=== PATIENT | male | born 1955 | race Two or more races ===

== ENCOUNTER 2020-11-02 23:03 | Inpatient (IN) | payer MEDICARE, OTHER ==
[~2020-11-02] VITALS: Ht 180.3 cm; Wt 83.0 kg
[2020-11-02] MEDS ORDERED: METOPROLOL TARTRATE 50 MG TABLET PO ONE (23:15)
[2020-11-02] MEDS ORDERED: LORAZEPAM 0.5 MG TABLET PO ONE (23:15)
[2020-11-02] MEDS ORDERED: ASPIRIN 81 MG TAB.CHEW PO ONE (23:15)
--- NOTE | 2020-11-02 23:16 | NUR ---
PT BIB RA 88 FROM HOME C/O CONSTANT PINPOINT NONRADIATING LEFT CHEST PRESSURE STARTED AT 9 THIS MORNING. A/O X4, NO SOB OR LABORED BREATHING, AFEBRILE. DENIES ANY N/V. CLEAR SPEECH, COMPLETE SENTENCES, HAND GRIBS EQUAL. NO DEFICITS TO EXTREMITIES NOTED. EYES PERRLA. DR. FUNK AT BEDSIDE, MSE IN PROGRESS.
--- NOTE | 2020-11-02 23:20 | NUR ---
PHLEB AT BEDSIDE.
--- NOTE | 2020-11-02 23:25 | NUR ---
XRAY AT BEDSIDE.
[2020-11-02] MEDS ORDERED: LORAZEPAM 1 MG TABLET ONE (23:27)
[2020-11-02] MEDS ORDERED: METOPROLOL TARTRATE 50 MG TABLET ONE (23:27)
[2020-11-02] MEDS ORDERED: ASPIRIN 81 MG TAB.CHEW ONE (23:27)
[2020-11-02 23:32] LABS: HEMATOCRIT 46.6 % (36.7-47.1); MEAN CORPUSCULAR HEMOGLOBIN 30.5 uug (23.8-33.4); MEAN CORPUSCULAR VOLUME 86.7 fL (73.0-96.2); PLATELET COUNT (AUTO) 223 K/uL (152-348)
[2020-11-02 23:36] LABS: POTASSIUM 3.9 mmol/L (3.5-5.1)
[2020-11-02] MEDS ORDERED: OXYC-128 PO (23:38)
[2020-11-02] MEDS ORDERED: OXYCODONE/APAP 5-325 MG TABLET PO ONE (23:45)
[2020-11-02] MEDS ORDERED: OXYCODONE/APAP 5-325 MG TABLET ONE (23:49)
--- NOTE | 2020-11-02 23:56 | NUR ---
CALLED [facility] FOR PANEL CALL, KIRAN HYMAN PAGED.
[2020-11-03] VITALS (16 sets, daily range): BP systolic 115–148; BP diastolic 62–104
[2020-11-03] MEDS ORDERED: OMEP20TA20 PO (00:04)
[2020-11-03] MEDS ORDERED: celebrex PO (00:04)
[2020-11-03] MEDS ORDERED: ENOXAPARIN SODIUM 80 MG/0.8 ML DISP.SYRIN SQ ONE ×2 (00:15→00:21)
[2020-11-03] MEDS ORDERED: ACETAMINOPHEN 325 MG TABLET PO PRN ×2 (00:15→17:09)
[2020-11-03] MEDS ORDERED: hydrALAZINE HCL 20 MG/1 ML VIAL IV PRN (00:15)
[2020-11-03] MEDS ORDERED: MORPHINE SULFATE 2 MG/1 ML DISP.SYRIN IV PRN (00:15)
[2020-11-03] MEDS ORDERED: LABETALOL HCL 100 MG/20 ML VIAL IV PRN (00:15)
[2020-11-03] MEDS ORDERED: HYDROCODONE/APAP 5-325MG TABLET PO PRN (00:15)
[2020-11-03] MEDS ORDERED: ONDANSETRON 4 MG/2 ML VIAL IV PRN (00:15)
--- NOTE | 2020-11-03 00:17 | NUR ---
DR. ALVAREZ (CARDIO) CALLED AND PAGED. WAITING SUPERINTENDENT MENAGERIE BACK.
--- NOTE | 2020-11-03 01:07 | NUR ---
REPAGED DR. ALVAREZ.
--- NOTE | 2020-11-03 02:23 | NUR ---
PT NOTED TO BE IN BED RESTING, WATCHING TV. VSS.
--- NOTE | 2020-11-03 03:40 | NUR ---
GAVE REPORT TO FREDDY TAVAREZ.
--- NOTE | 2020-11-03 04:33 | NUR ---
Pt. admitted to CCU , under care of Dr. Denise Dx: Myocarditis Belongs List completed
--- NOTE | 2020-11-03 04:35 | NUR ---
RECEIVED PATIENT VIA WHEELCHAIR FROM ER CAME FOR CHEST PAIN DX: NSTEMI -MYOCARDITIS -COSTOCHONDRITIS ACUTE. PATIENT AAOX4 ,MAEX4. CONNECTED TO HEART MONITOR AND ORIENTED TO ROOM CALL LIGHT AND TV MONITOR . V/S BP 117/71 HR 50 SINUS BRADYCARDIA CONSISTENT WITH EKG DONE IN ER ,RR 22 SATURATION ROOM AIR 95%. PATIENT DENIES CHEST PAIN ,HE SAID JUST GIVE ME THE REMOTE CONTROL FOR THE TV AND WATER AND URINAL BESIDE ME . ADMITTED PATIENT AND DATA COLLECTED FROM PATIENT . BELONGINGS CHECK DONE AND PATIENT BELONGINGS PLACED IN A BELONGING BAG AND PATIENT WANT IT IN HIS POSSESSION .
--- NOTE | 2020-11-03 04:50 | NUR ---
PATIENT ASKED FOR SOMETHING EAT , HE SAID HE LIKE JELLO GIVEN STRAWBERRY FLAVORED JELLO .PATIENT ABLE TO FEED SELF .
--- NOTE | 2020-11-03 05:00 | NUR ---
LAB CAME AND DRAW AM LAB ,TROPONIN.
--- NOTE | 2020-11-03 05:45 | NUR ---
CALLED ABNORMAL TROPONIN TO [employer] PRODUCER ASSISTANT : SPOKED WITH :JOVANI INFORMED HIM THAT THE TROPONIN AT [phone] (H)-NO ORDERS MADE . INFORMED HIM NO LABS ORDERED FOR THIS MORNING HE SAID TO ORDER CMP AND CBC .
[2020-11-03 06:21] LABS: BILIRUBIN,TOTAL 0.8 mg/dL (0.2-1.0); CREATININE 1.1 mg/dL (0.6-1.3); POTASSIUM 3.8 mmol/L (3.5-5.1); TOTAL PROTEIN, SERUM 7.4 g/dL (6.4-8.2)
[2020-11-03 06:22] LABS: HEMATOCRIT 47.7 % (36.7-47.1); MEAN CORPUSCULAR HEMOGLOBIN 30.9 uug (23.8-33.4); MEAN CORPUSCULAR VOLUME 88.3 fL (73.0-96.2); PLATELET COUNT (AUTO) 229 K/uL (152-348)
--- NOTE | 2020-11-03 07:10 | NUR ---
Received pt. on bed resting comfortably. AAOx4. Hemodynamically with HR of 56, SBP of 135/76, rr 16. saturation of 97% on RA. pt. with no c/of any distress. Will continue with care plan.
--- NOTE | 2020-11-03 07:50 | NUR ---
Patient seen by molder meat Dr. Braun and orders to consent pt. for cardiac CTA received. Electronic Equipment Set Up Operator informed.
[2020-11-03] MEDS ORDERED: ATORVASTATIN 40 MG TABLET PO ONE (08:15)
[2020-11-03] MEDS: ASPIRIN 325 MG TABLET PO SCH ×2 (09:25→12:23)
--- NOTE | 2020-11-03 10:00 | NUR ---
Patient seen by attending Earnest Beebe.
--- NOTE | 2020-11-03 10:15 | NUR ---
Dr. Braun notified of pt's refusal to get lovenox at this time and preferably He would like to have it after cardiac CTA. Dr. garsia.
--- NOTE | 2020-11-03 10:45 | NUR ---
A call to Case-management and at this I spoke to Laura and informed her of ordered Cardiac CTA by Dr. Braun this morning. As stated "she will call back with time of procedure."
[2020-11-03] MEDS ORDERED: ENOXAPARIN SODIUM 80 MG/0.8 ML DISP.SYRIN SQ SCH (11:00)
--- NOTE | 2020-11-03 11:08 | NUR ---
A call from case-intervention manager Ms. Sanchez and at this time I was informed pt. will be pick remover by [facility] ambulance services, between [phone]. no trip number and this will be ACLS service.
--- NOTE | 2020-11-03 14:10 | NUR ---
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 Pt. left the unit AAO4 sbp 119/76 hr of 57. rr 16. no c/of pain. saturation of 96%. ticket to ride and consent sent with ambulance customer counter representative.
--- NOTE | 2020-11-03 15:49 | NUR ---
Patient back from Cardiac CTA AAOx4. vitals 97.7 orally, sbp of 148/89, Hr,73. Patient able to ambulate from gurney to bed. Patient with c/of having an IV access to RAC started at [facility]. Patient explained that Iv needed for now and that the old one will be dcd. as requested by him.
[2020-11-03] MEDS: ENOXAPARIN SODIUM 80 MG/0.8 ML DISP.SYRIN SQ SCH (16:10)
--- NOTE | 2020-11-03 17:05 | NUR ---
A call from Dr. Braun to discussed with pt. Cardiac CTA results and with new orders for aspiring of 81mg po daily.
--- NOTE | 2020-11-03 18:18 | NUR ---
Left pt. on bed resting comfortably. AAOx4. Hemodynamically stable with HR of 72, SBP of 130/75, rr 14-20. Patient S/p cardiac CTA. saturation of 97% on RA. pt. with no c/of any distress. Tolerated diet well with no n/v/d. Adequate urine output during shift. No injury or skin breakdown during shift. Will continue with care plan.
--- NOTE | 2020-11-03 19:15 | NUR ---
ROUNDS MADE PATIENT IN BED SLEEPING NO RESPIRATORY DISTRESS NOTED BREATHING EVEN AND UNLABORED , HR ON THE HEART MONITOR 78 SINUS RHYTHM ,BP 136/84. SATURATION 97 % RR 18 ROOM AIR .
--- NOTE | 2020-11-03 19:45 | NUR ---
ROUNDS MADE PATIENT IN BED AWAKE AND UPSET ABOUT THE NOISE OF THE MACHINE AND CONSTANT ALARMS AND FREQUENT BP MONITORING AND THE NOISE AROUND HIS SURROUNDINGS .INFORMED PATIENT THAT IN CCU FREQUENT V/S MONITORING IS NEEDED C/O PATIENT IS MORE CRITICAL AND NEEDS TO BE CLOSELY WATCHED AND MONITORED . INFORMED HIM ALSO THAT THE UNIT IS SMALL AND ONLY SLIDING DOORS AND SLIDING WALL . WILL TRY TO MINIMIZED THE NOISE AND WILL CLOSED HIS DOOR SO HE CANNOT HEAR THE NOISE .
[2020-11-03] MEDS ORDERED: TEMAZEPAM 7.5 MG CAPSULE PO PRN (21:00)
--- NOTE | 2020-11-03 21:00 | NUR ---
SPOKED WITH BEE OUTBOUND CALL CENTER REPRESENTATIVE PATIENT WITH ORDER FOR TRANSFER TO TELEMETRY STATUS .
--- NOTE | 2020-11-03 21:05 | NUR ---
given Restoril c/o patient request wants to sleep and did not sleep last night because he was in the ER .GIVEN MEDS .
[2020-11-03] MEDS: FLUTICASONE PROP NASAL SPRAY 16 GM BOTTLE NS SCH (21:06)
[2020-11-03] MEDS: METOPROLOL TARTRATE 25 MG TABLET PO SCH (21:06)
[2020-11-04] VITALS: BP 130/74
--- NOTE | 2020-11-04 00:56 | NUR ---
ROUNDS MADE PATIENT IN BED AWAKE HE SAID GE WAS ABLE TO SLEEP A GOOD 2 TO 3 HOURS .
--- NOTE | 2020-11-04 02:05 | NUR ---
patient called and verbalized that the room is warm ,patient verbalized at home he has a table stand electric fan . provided electric fan as set it at 1.
--- NOTE | 2020-11-04 03:00 | NUR ---
voids using the urinal . yellowish in color .
--- NOTE | 2020-11-04 04:30 | NUR ---
refused v/s and wants to sleep .
[2020-11-04 05:24] LABS: HEMATOCRIT 44.4 % (36.7-47.1); MEAN CORPUSCULAR HEMOGLOBIN 30.5 uug (23.8-33.4); PLATELET COUNT (AUTO) 200 K/uL (152-348)
[2020-11-04] MEDS: ENOXAPARIN SODIUM 80 MG/0.8 ML DISP.SYRIN SQ SCH ×2 (05:42→21:04)
[2020-11-04 05:48] LABS: BILIRUBIN,TOTAL 1.4 mg/dL (0.2-1.0); CREATININE 1.2 mg/dL (0.6-1.3); PHOSPHOROUS 3.7 mg/dL (2.5-4.9); POTASSIUM 4.1 mmol/L (3.5-5.1); TOTAL PROTEIN, SERUM 7.2 g/dL (6.4-8.2)
[2020-11-04 07:01] VITALS: BP 123/65
--- NOTE | 2020-11-04 08:00 | NUR ---
pt resting in bed, a/ox4, on tele monitor NSR, on room air, no signs of distress, no reports of pain. pt voiding via urinal at bedside. iv on the left hand 18g HL, no reports of chest pain or pressure reported. bed low and locked, call light within reach, will continue top monitor.
[2020-11-04] MEDS: ASPIRIN 81 MG TAB.CHEW GT SCH (09:26)
[2020-11-04] MEDS: FLUTICASONE PROP NASAL SPRAY 16 GM BOTTLE NS SCH (09:27)
[2020-11-04] MEDS: ATORVASTATIN 40 MG TABLET PO SCH (09:27)
[2020-11-04] MEDS: METOPROLOL TARTRATE 25 MG TABLET PO SCH ×2 (09:33→20:53)
--- NOTE | 2020-11-04 13:00 | NUR ---
Received patient via wheelchair. Report given by ARLEN Duron from CCU. Patient denies pain. Oriented patient to the room. Kept call light within reach. Will continue to monitor.
--- NOTE | 2020-11-04 13:00 | NUR ---
pt transferred to tele floor with all belongings via wheel chair, chart sent up with pt. reported given to ARLEN Lucas.
[2020-11-04 15:08] VITALS: BP 105/58
--- NOTE | 2020-11-04 19:07 | NUR ---
No distress identified during the shift. All needs attended. Will endorse to the next shift for continuity of care.
[2020-11-04 20:00] VITALS: BP 115/65
[2020-11-05 00:19] VITALS: BP 94/47
--- NOTE | 2020-11-05 03:24 | NUR ---
PT DENIED ANY CHEST PAIN,SOB, OR DISCOMFORT, ON SR HEART MONITORING, CALL LIGHT WITHIN REACH. ALL NEEDS ARE ATTENDED AND MET.
--- NOTE | 2020-11-05 07:11 | NUR ---
REPORT GIVEN TO MORNING SHIFT RN IVELISSE
--- NOTE | 2020-11-05 07:30 | NUR ---
received in bed awake alert and oriented x4. denies sob or chest pain. iv intact. provided dietary extension bec he says he wants to change his food preference. no complaints at this time. safety measures in place. continue to monitor.
[2020-11-05] MEDS: ASPIRIN 81 MG TAB.CHEW GT SCH (08:09)
[2020-11-05] MEDS: ATORVASTATIN 40 MG TABLET PO SCH (08:10)
[2020-11-05] MEDS: FLUTICASONE PROP NASAL SPRAY 16 GM BOTTLE NS SCH (08:10)
[2020-11-05] MEDS: ENOXAPARIN SODIUM 80 MG/0.8 ML DISP.SYRIN SQ SCH ×2 (08:11→20:03)
[2020-11-05 08:12] VITALS: BP 112/63
[2020-11-05] MEDS: METOPROLOL TARTRATE 25 MG TABLET PO SCH (08:12)
[2020-11-05] MEDS ORDERED: METOPROLOL SUCCINATE XL 25 MG TAB.SR.24H PO SCH (09:00)
--- NOTE | 2020-11-05 10:30 | NUR ---
spoke with pt and stated he's ok to be transferred to [facility] for cardiac catheterization. denies chest pain.
[2020-11-05 10:58] VITALS: BP 100/57
[2020-11-05 15:31] VITALS: BP 113/66
--- NOTE | 2020-11-05 15:40 | NUR ---
received telephone order from maricruz hickey to continue all current medications. patient is being transferred to [facility] for cardiac catheterization tomorrow.
--- NOTE | 2020-11-05 16:40 | NUR ---
medication and f/up instructions given to patient for discharge, he verbalized understanding. belongings list completed.
--- NOTE | 2020-11-05 18:54 | NUR ---
alert and oriented x4. no c/o chest pain or sob. safety measures in place. kept comfortable. needs attended.
--- NOTE | 2020-11-05 19:00 | NUR ---
sr on tele heart rate 65. endorsed accordingly.
--- NOTE | 2020-11-05 20:35 | NUR ---
PT DISCHARGE. PT WHEELED OUT VIA [place] BY ANTONIA LEIGH [id number]. GIVEN DISCHARGE PACKET AND INSTRUCTIONS GIVEN TO ANNE-MARIE OF [id number]. BELONGING LIST DONE AND GAVE TO PT. TOLD ANNE-MARIE THAT I GIVEN LOVENOX PER LOG GETTER ORDER AND PAPERS WITH HIM. PT IN NO ACUTE DISTRESS. PT VITAL SIGNS STABLE. IV AND ID WRISTBAND TAKEN OFF. HEART MONITOR TAKEN OFF.
== END 2020-11-05 20:25 | disposition short-term general hospital (02) | DRG 282 ==
LOC: ER 23:06 → CCU 11-03 04:07 → TELE3 11-04 13:10
PROVIDERS: ADMIT Nurse Practitioner Acute Care; ATTEND Nurse Practitioner Acute Care
DX: I21.4 Non-ST elevation (NSTEMI) myocardial infarction (principal); I51.4 Myocarditis, unspecified; I25.10 Atherosclerotic heart disease of native coronary artery without angina pectoris; T50.B95A Adverse effect of other viral vaccines, initial encounter; Y92.89 Other specified places as the place of occurrence of the external cause; Z20.822 Contact with and (suspected) exposure to COVID-19; M51.9 Unspecified thoracic, thoracolumbar and lumbosacral intervertebral disc disorder
CPT/HCPCS: 36415; 70030-TC; 71045; 84100; 85025; 93005; 93307; A4663; G0378; J1650; J3535